=== PATIENT | male | born 1990 | race African-American/Black ===

== ENCOUNTER 2018-09-08 07:41 | Emergency (ER) | payer MEDICARE, OTHER ==
[~2018-09-08] VITALS: Ht 188 cm; Wt 113.6 kg
[2018-09-08] MEDS ORDERED: WELLTAB38 PO (07:48)
[2018-09-08] MEDS ORDERED: PRAZ2CAP PO (07:48)
[2018-09-08 08:40] LABS: BASO % 0.2 % (0.0-1.0); EOS # 0.1 10^3/uL (0.0-0.50); EOS % 1.3 % (0.0-3.0); HEMATOCRIT 40.8 % (42.0-52.0); HEMOGLOBIN 13.9 g/dl (13.5-17.5); LYMPH # 2.2 10^3/uL (1.5-6.5); LYMPH % 48.7 % (24.0-44.0); MEAN CORPUSCULAR HEMOGLOBIN 30.6 pg (27.0-33.0); MEAN CORPUSCULAR HGB CONC 34.1 g/dl (32.0-36.5); MEAN CORPUSCULAR VOLUME 89.9 fl (80.0-96.0); MONO # 0.3 10^3/uL (0.0-0.8); MONO % 7.1 % (0.0-5.0); NEUTROPHILS # 1.9 10^3/uL (1.8-7.7); NEUTROPHILS % 42.5 % (36.0-66.0); PLATELET COUNT, AUTOMATED 334 10^3/uL (150-450); RED BLOOD COUNT 4.54 10^6/uL (4.30-6.10); WHITE BLOOD COUNT 4.5 10^3/uL (4.0-10.0)
--- NOTE | 2018-09-08 08:45 | REP ---
Clinical: Left scapular/chest pain . Comparison: None . Technique: PA and lateral. Findings: The mediastinum and cardiac silhouette are normal. The lung subramanian are clear and without acute consolidation, effusion, or pneumothorax. The skeletal structures are intact and normal. Impression: 1. No acute cardiopulmonary process. Electronically Signed by Eloy Moses MD 09/08/2018 08:36 A
[2018-09-08] MEDS ORDERED: KETOROLAC 30 MG/ML VIAL (J1885) IV ONE (09:15)
[2018-09-08 10:35] LABS: BLOOD UREA NITROGEN 11 MG/DL (7-18); CALCIUM LEVEL 8.8 MG/DL (8.5-10.1); CARBON DIOXIDE LEVEL 30 MEQ/L (21-32); CHLORIDE LEVEL 102 MEQ/L (98-107); CK-MB VALUE MASS < 1.0 NG/ML (<3.6); CPK CREATINE PHOSPHOKINASE 142 U/L (39-308); CREATININE FOR GFR 1.24 MG/DL (0.70-1.30); GLOMERULAR FILTRATION RATE > 60.0 (>60); GLUCOSE, FASTING 101 MG/DL (70-100); SODIUM LEVEL 139 MEQ/L (136-145); TROPONIN I < 0.02 NG/ML (< 0.10)
[2018-09-08] MEDS ORDERED: KETO10TAB PO (10:39)
[2018-09-08 10:44] VITALS: BP 127/75
--- NOTE | 2018-09-08 17:28 | ECGEPIP ---
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
== END 2018-09-08 10:47 | disposition home or self-care (01) ==
LOC: M ED 07:41
DX: M54.6 Pain in thoracic spine (principal); F43.10 Post-traumatic stress disorder, unspecified; Z79.899 Other long term (current) drug therapy
CPT/HCPCS: 71046; 80048; 82550; 82553; 84484; 85025; 85379; 93005; 96374; 99284; J1885

== ENCOUNTER → 2019-12-29 | Outpatient (CLI) | payer MEDICARE, OTHER ==
[~2019-12-29] MED LIST: KETO10TAB PO; PRAZ2CAP PO; WELLTAB38 PO
== END ==
LOC: M LABSMTC 10:40
PROVIDERS: ATTEND Family Medicine
DX: Z11.59 Encounter for screening for other viral diseases (principal); Z20.828 Contact with and (suspected) exposure to other viral communicable diseases

== ENCOUNTER 2020-12-26 09:29 | Emergency (ER) | payer MEDICARE, OTHER ==
[~2020-12-26] VITALS: Ht 188 cm; Wt 275.0 kg
[2020-12-26] MEDS ORDERED: OMEP1CAP73 PO (10:10)
[2020-12-26] MEDS ORDERED: ONDANSETRON 4MG/2ML VIAL IV ONE (11:35)
[2020-12-26] MEDS ORDERED: KETOROLAC 30 MG/ML 1ML VIAL IV ONE (11:35)
[2020-12-26] MEDS ORDERED: NS 1,000 ML IV ONE (11:45)
[2020-12-26] MEDS ORDERED: diphenhydrAMINE 50MG/ML VIAL (J1200) IV ONE (11:45)
[2020-12-26] MEDS ORDERED: ACETAMINOPHEN 325 MG TAB PO ONE (11:55)
[2020-12-26 12:06] LABS: BASO % 0.3 % (0.0-1.0); EOS % 0.2 % (0.0-3.0); HEMATOCRIT 42.5 % (42.0-52.0); HEMOGLOBIN 14.1 g/dl (13.5-17.5); LYMPH # 0.8 10^3/uL (1.5-5.0); LYMPH % 13.4 % (24.0-44.0); MEAN CORPUSCULAR HEMOGLOBIN 29.7 pg (27.0-33.0); MEAN CORPUSCULAR HGB CONC 33.2 g/dl (32.0-36.5); MEAN CORPUSCULAR VOLUME 89.5 fl (80.0-96.0); MONO # 0.6 10^3/uL (0.0-0.8); MONO % 9.3 % (2.0-8.0); NEUTROPHILS # 4.7 10^3/uL (1.5-8.5); NEUTROPHILS % 76.6 % (36.0-66.0); PLATELET COUNT, AUTOMATED 359 10^3/uL (150-450); RED BLOOD COUNT 4.75 10^6/uL (4.30-6.10); WHITE BLOOD COUNT 6.1 10^3/uL (4.0-10.0)
--- NOTE | 2020-12-26 12:15 | REP ---
INDICATION: severe headache rapid onset. COMPARISON: None. TECHNIQUE: Helical scanning is acquired. 5 mm axial images were reformatted. Coronal MPR images were generated. FINDINGS: Bone window settings demonstrate an intact bony calvarium. There is no evidence of skull fracture or incidental bony calvarial lesion. The visualized paranasal sinuses appear clear. No intraorbital abnormality is seen. On soft tissue window setting images; the lateral, third, and fourth ventricles are normal in size and position. Washburn-white differentiation pattern is normal above and below the tentorium. There are is no evidence of intracranial hemorrhage. No mass, edema, infarction, or midline shift is seen. No extra-axial fluid collection is appreciated. IMPRESSION: Negative noncontrast head CT. <Electronically signed by Carlos Araiza > 12/26/20 [id number]
[2020-12-26 12:16] LABS: INR 0.93; PROTHROMBIN TIME 12.7 SECONDS (12.5-14.3)
[2020-12-26 12:17] LABS: PARTIAL THROMBOPLASTIN TIME 27.7 SECONDS (24.2-38.5)
[2020-12-26] MEDS ORDERED: ISOVUE-370 76% 100ML VIAL As Ordered ONE (12:25)
[2020-12-26 12:31] LABS: ALBUMIN 4.2 GM/DL (3.2-5.2); ALT/SGPT 23 U/L (12-78); BILIRUBIN,DIRECT < 0.1 MG/DL (0.0-0.2); BILIRUBIN,TOTAL 0.4 MG/DL (0.2-1.0); LIPASE 120 U/L (73-393); TOTAL PROTEIN 8.1 GM/DL (6.4-8.2)
--- NOTE | 2020-12-26 12:46 | REP ---
INDICATION: rlq pain. COMPARISON: None. TECHNIQUE: Helical scanning was acquired and 4 mm axial images are re-formatted. Coronal and sagittal MPR images were generated and reviewed. The contrast enhancement dose is 100 mL of intravenous Isovue 370. FINDINGS: Preliminary digital storage battery charger radiograph is unremarkable. The lung bases are clear on axial CT images. The liver and the spleen are normal in size homogeneous in texture. Normal adrenal glands are observed bilaterally. There is an intrarenal calculus 4 mm in diameter at the midpole position of the left kidney. No right renal calculus is seen. No ureteral calculus or hydronephrosis is appreciated on either side. Kidneys enhance symmetrically. No retroperitoneal mass or adenopathy is observed. Small and large intestinal bowel loops are normal in the abdomen and pelvis. Normal appendix is seen in the right lower quadrant. No acute bony abnormality is observed. There is mild narrowing of the L4-5 disc and diffuse bulging is seen in the 3 4 and 4 5 disc space margins. IMPRESSION: Intrarenal nephrolithiasis left kidney without hydronephrosis. Normal appendix. No acute abdominal or pelvic abnormality. <Electronically signed by Carlos Araiza > 12/26/20 [id number]
[2020-12-26] MEDS ORDERED: FLOM0.4C39 PO (14:44)
[2020-12-26 14:52] LABS: CHLAMYDIA DNA AMPLIFICATION NEGATIVE (NEGATIVE); GC DNA AMPLIFICATION NEGATIVE (NEGATIVE)
[2020-12-26] MEDS ORDERED: KETO10TAB PO (15:45)
[2020-12-26 15:57] VITALS: BP 125/67
== END 2020-12-26 16:13 | disposition home or self-care (01) ==
LOC: M ED 09:29
DX: E86.0 Dehydration (principal); N13.39 Other hydronephrosis; K21.9 Gastro-esophageal reflux disease without esophagitis; D64.9 Anemia, unspecified; Z79.899 Other long term (current) drug therapy
CPT/HCPCS: 70450; 74177; 80047; 80076; 81001; 83605; 83690; 85025; 85610; 85730; 87661; 96361; 96374; 96375; 99284; J1200; J1885; J2405; Q9967